=== PATIENT | male | born 1955 | race Caucasian/White ===

== ENCOUNTER 2017-04-06 14:21 | Emergency (ER) | payer BC, OTHER ==
[~2017-04-06] VITALS: Wt 74.0 kg
--- NOTE | 2017-04-06 15:16 | ERD ---
ER Documentation Chief Complaint Date/Time DATE: 04/06/17 Chief Complaint Left shoulder pain HPI The patient is a 61-year-old male who presents to the Emergency Department with complaint of left shoulder pain. The patient reports yesterday he had a mechanical trip and fall at home, and fell with his left shoulder abducted. He believes they may have dislocated his shoulder, and shortly afterwards was able to self reduce the joint. He followed up with his primary medical provider, at which time the patient was given a prescription for naproxen and an authorization was placed for x-ray imaging of the left shoulder. Today, while changing his clothes, he was reaching overhead when he felt as if the shoulder may dislocate again. He began to experience pain to the shoulder joint, with mildly decreased range of motion, and therefore lowered his arm, and the sensation resolved. Given these symptoms he decided to present to the emergency department for further evaluation. He denies any numbness, paresthesias or weakness of the distal extremity. Denies any history of shoulder dislocation prior to the initial episode yesterday. Denies any head injury/neck injury or pain or loss of consciousness with the fall yesterday. No other complaints at this time. ROS All systems reviewed and are negative except as per history of present illness. Medications Home Meds No Active Prescriptions or Reported Meds Allergies Allergies: Coded Allergies: No Known Allergy (Unverified , 12/08/13) PMhx/Soc History of Surgery: No Anesthesia Reaction: No Hx Neurological Disorder: No Hx Respiratory Disorders: No Hx Cardiac Disorders: No Hx Psychiatric Problems: No Hx Miscellaneous Medical Probl: No Hx Alcohol Use: No Hx Substance Use: No Hx Tobacco Use: No Physical Exam Vitals Vital Signs Date Time Temp Pulse Resp B/P Pulse Ox O2 Delivery O2 Flow Rate FiO2 04/06/17 16:34 98.2 71 18 122/68 99 Room Air 04/06/17 14:27 99.4 96 20 140/88 98 Physical Exam GENERAL: Well-developed, well-nourished, in no acute distress HEENT: Head is normocephalic, atraumatic. No scleral pallor or icterus. Conjunctiva pink. Moist mucous membranes. NECK: Supple. Full range of motion. RESPIRATORY: Lungs are clear to auscultation bilaterally. Equal breath sounds. Normal expiratory effort. CARDIOVASCULAR: Regular rate and rhythm. S1 and S2 normal. GASTROINTESTINAL: Abdomen is soft, nontender, and nondistended. EXTREMITIES: Inspection of the left shoulder reveals no deformity and fairly developed musculature without any atrophy. No sagging of the shoulder. No obvious deformity. Palpation of the shoulder reveals mild tenderness upon palpation of the bicipital groove. Active and passive range of motion intact. However, with external rotation and abduction, the patient's left shoulder spontaneously dislocated (with anterior fullness, prominent acromion process, depression in deltoid region and restricted range of motion). It was quickly reduced. Positive anterior shoulder apprehension test. Negative Neer sign. Negative Hawkin's sign. Negative drop arm test. Examination of the biceps reveals no pain with resisted flexion or pronation. Negative Yergason sign. Negative sulcus sign. Axillary, radial, median and ulnar nerve distribution grossly intact, both motor and sensory. Normal skin perfusion. Other joints nontender. No joint effusion. Full range of motion of the upper and lower extremities. Muscle tone is normal. No focal swelling or erythema. No clubbing, cyanosis or edema. Compartments are soft. No ecchymosis. No crepitus. No step offs. Normal strength. Distal pulses are palpable, 2+ bilaterally. Capillary refill is less than 2 seconds/ NEUROLOGIC: The patient is alert, awake, and oriented x 3. No focal neurologic deficits. Motor and sensation grossly intact. INTEGUMENT: Skin is clean, dry and intact. PSYCHIATRIC: Appropriate; Cooperative. Results 24 hrs Current Medications Medications (Trade) Dose Ordered Sig/Vitaly Route PRN Reason Start Time Stop Time Status Last Admin Dose Admin Ibuprofen (Motrin) 600 mg ONCE ONCE PO 04/06/17 15:30 04/06/17 15:31 DC 04/06/17 15:07 Procedures/MDM This is a 61-year-old male presenting to the Emergency Department with left shoulder pain, with recent shoulder dislocation. He showed no evidence of toxicity, and vital signs were stable. There are no imaging findings to suggest fracture, current dislocation or subluxation. However, patient's left shoulder was clinically noted to dislocate during the ED course, and was subsequently reduced. Anterior shoulder instability noted. Patient is breathing normally on room air with no shortness of breath, no tachypnea and a normal O2 saturation. I do not suspect pneumothorax. No pain out of proportion to examination, no fevers, no constitutional symptoms, no crepitus, no skip lesions or rash, no erythema or restricted range of motion to suggest necrotizing fasciitis, necrotizing myositis, avascular necrosis, septic arthritis. Range of motion appears to be intact with no weakness, negative Neer 's, Hawkin's, drop arm test, no clinical evidence of rotator cuff pathology. However, this cannot be ruled out without MRI imaging. Distal extremity is neurovascularly intact, with 2+ pulses that are equal bilaterally and capillary refill less than 2 seconds. No evidence of neurovascular compromise. After rest and administration of Ibuprofen, the patient reports no new complaints and mildly decreased pain. Upon my review and interpretation of the patient's presentation and overall ER course, I believe that the patient's symptoms are most consistent with shoulder pain, likely secondary to recent shoulder dislocation. The patient is in stable condition and therefore can be discharged home with strict return precautions for signs of deteriorating or worsening condition. The importance of icing, elevating, and resting was discussed with the patient. The patient is instructed to follow up with his primary care provider and/or clinical trials specialist within 2-3 days for reevaluation and further management or return to the ER sooner for any worsening symptoms. I shared my medical decision making, plan and diagnostic imaging results with the patient at length and in great detail and he verbally understands and agrees with the plan for further observation and care as an outpatient. At the time of discharge, all questions were answered. SHOULDER IMMOBILIZER APPLICATION: INDICATION: Left shoulder dislocation. LOCATION: Left shoulder/upper extremity. NEUROVASCULAR EXAM: The patient's extremity was neurovascularly intact prior to and status post dylan wrap placement. Departure Diagnosis: Primary Impression: Closed dislocation of left shoulder Encounter type: initial encounter Qualified Code: S43.005A - Closed dislocation of left shoulder, initial encounter Condition: Stable Patient Instructions: Dislocation: Shoulder (Reduced) Referrals: RENU GARCIA MD Additional Instructions: Llame al doctor VERNA y tristan aniket RODERICK PARA DENTRO DE 1-2 SOLOMON.Dgale a la secretaria que nosotros le instruimos hacer esta roderick.Avise o llame si eddy condicin se empeora antes de la roderick. Regresa aqui si peor o no mejor. Specialist:Usted tiene aniket condicin mdica que requiere que cyndie a un especialista dentro de los prximos 1-2 varner.POR FAVOR,CON EDDY SEGUIMIENTO DE PRIMARIA PHSICIAN refferal. SI USTED NO TIENE UN MDICO GENERAL Y / O USTED NO PUEDE PAGAR asael a un mdico,los siguientes wylie RECURSOS sido suministrado a usted. ES EDDY RESPONSABILIDAD PARA SER VISTOS POR EL ESPECIALISTA: ARIEL VIEIRA PA-C April 06, 2017 15:15
[2017-04-06] MEDS ORDERED: IBUPROFEN 600 MG TAB PO ONE (15:30)
--- NOTE | 2017-04-06 15:57 | RADRPT ---
PROCEDURE: XR left shoulder. CLINICAL INDICATION: Left shoulder dislocation. Post reduction imaging. TECHNIQUE: AP, Internal and Y views of the left shoulder were performed. COMPARISON: No. FINDINGS: The soft tissues and bony elements are normal. The left AC and glenohumeral joints are normal. The lungs are clear. The heart is normal in size. IMPRESSION: 1. Normal AP and Y-view of the left shoulder. RPTAT:AAJJ Physician Douglas Date Time Electronically viewed and signed by Minesh Benavidez Physician on 04/06/2017 15:57 /
[2017-04-06 16:34] VITALS: BP 122/68; PULSE 71; RESP 18; TEMP 98.2
== END 2017-04-06 16:35 | disposition home or self-care (01) ==
LOC: FTE 14:21
DX: S43.005A Unspecified dislocation of left shoulder joint, initial encounter (principal); W01.0XXA Fall on same level from slipping, tripping and stumbling without subsequent striking against object, initial encounter; Y92.009 Unspecified place in unspecified non-institutional (private) residence as the place of occurrence of the external cause
CPT/HCPCS: 73030